=== PATIENT | female | born 1955 | race Caucasian/White ===

== ENCOUNTER 2023-10-29 00:29 | Emergency (ER) | payer OTHER, SELFPAY ==
[2023-10-29 00:30] VITALS: BP 135/94
--- NOTE | 2023-10-29 03:41 | ED.GENMED ---
History of Present Illness
<ZANA Santoyo - Last Filed: 10/29/23 04:31>
General
Chief Complaint: Abdominal Symptoms
Source: patient
Time Seen by Provider: 10/29/23 03:22
History of Present Illness
History of Present Illness:
Patient is a 68 y/o female with PMHx of diverticulosis and HLD presenting with nausea and vomiting. She states she was started on Augmentin yesterday by her PCP for suspected diverticulitis. She states that she took her first dose at 8:30pm last
night and began to become nauseous and had vomiting at 10:30pm. She states she vomited 6x and the last one she had a small amount of bright red blood. She states she look in the mirror and she had a rash under her eyes. She states she then drove
herself to the hospital and she began to feel like her throat was swelling. She denies any shortness of breath, difficulty breathing, chest pain, abdominal pain, diarrhea.
Past History
<ZANA Santoyo - Last Filed: 10/29/23 04:31>
Past History
ED Past Medical History: Hypercholesterolemia
ED Past Surgical History: Cholecystectomy, and Orthopedic (Right hip replacement)
Patient has exhibited threatening behavior?: No
Social History
Tobacco: Former smoker
Alcohol: Occasional
Drug: None
Living: with family
Family History
Family History: Other (Hypertension, coronary disease, A. fib)
Phy Exam
<ZANA Santoyo - Last Filed: 10/29/23 04:31>
Physical Exam
Physical Exam:
GENERAL: Alert , talking comfortably, in no apparent distress
EYE: pupils equal and reactive
Throat: Airway intact, no exudates. No edema. No bleeding noted.
NECK: Supple, no significant adenopathy.
CARDIAC: Regular rate and rhythm .
LUNGS: Clear breath sounds bilaterally, no acute respiratory distress, no wheezes/rales/rhonchi. No stridor.
ABDOMEN: Soft, nondistended, nontender, no cvat
NEUROLOGICAL: Alert and oriented, no focal neuro deficits
SKIN: Petechial rash under both eyes.
MUSCULOSKELETAL: No edema, well perfused.
PSYCH: Normal and appropriate interaction.
Course
<ZANA Santoyo - Last Filed: 10/29/23 04:31>
Vital Signs
Initial and Last Documented VS:
Initial Vital Signs
Temp Pulse Resp BP Pulse Ox
98.4 F 74 22 135/94 96
10/29/23 00:30 10/29/23 00:30 10/29/23 00:30 10/29/23 00:30 10/29/23 00:30
Last Documented Vital Signs
Temp Pulse Resp BP Pulse Ox
98.4 F 84 22 107/65 95
10/29/23 00:30 10/29/23 04:11 10/29/23 00:30 10/29/23 04:07 10/29/23 04:07
<Cayetano Esposito DO - Last Filed: 10/29/23 04:35>
Vital Signs
Initial and Last Documented VS:
Initial Vital Signs
Temp Pulse Resp BP Pulse Ox
98.4 F 74 22 135/94 96
10/29/23 00:30 10/29/23 00:30 10/29/23 00:30 10/29/23 00:30 10/29/23 00:30
Last Documented Vital Signs
Temp Pulse Resp BP Pulse Ox
98.4 F 84 22 107/65 95
10/29/23 00:30 10/29/23 04:11 10/29/23 00:30 10/29/23 04:07 10/29/23 04:07
<ZANA Santoyo - Last Filed: 10/29/23 04:31>
MDM/Problems Addressed
Differential Diagnosis Includes:
Differential diagnosis includes but is not limited to adverse drug reaction, allergic reaction
<ZANA Santoyo - Last Filed: 10/29/23 04:31>
*Pulse Oximetry
Patient hypoxic: no
*EKG
Interpreted by ED Provider?: NA
*Wire Mill Rover Interpretation
Rate: Wire Mill Rover- N/A
*Critical Care Note
Total Time (30-74mins, 75-104mins- exclusive of procedures): Not Applicable
ED Attending Note
<ZANA Santoyo - Last Filed: 10/29/23 04:31>
-
Portions of this chart may have been created with voice recognition software.� Occasional wrong word or��sound alike� substitutions may have occurred due to the inherent limitations of voice recognition software.
<Cayetano Esposito DO - Last Filed: 10/29/23 04:35>
ED Attending Note
Patient seen and examined by attending physician: Yes
I performed the substantive portion of visit, reviewed & personally made and approve the management plan that is documented in note by myself or ERINN.: Yes
ED Attending Note:
68-year-old female that had left lower quadrant abdominal pain that began last . 5 days later she called her primary care provider who recommended that she start on Augmentin. She took 1 dose of Augmentin tonight and had some nausea with
vomiting. She stated that she vomited 6 times with the last episode of vomiting having some bright red streaks of blood in it. Patient also reported some petechiae around her eyes. Patient states that during the course of her ER visit, her
symptoms had resolved. Patient was seen in conjunction with the PA student. I have reviewed and agree with the history and treatment plan presented. On my independent physical exam, patient is awake, alert, and oriented x3 no apparent distress.
Heart is regular rate rhythm. Lungs are clear to auscultation bilaterally no wheezes rales or rhonchi present. Abdomen soft with very minimal diffuse tenderness to palpation. Moves all 4 extremities. Skin is warm and dry.
Discussed discontinuation of Augmentin. Patient agreed. She does not wish to take another antibiotic. I did offer her Levaquin and Flagyl and she refused stating that she is very sensitive to antibiotics and does not wish to start a new
combination of antibiotics. We discussed CAT scan to rule out abdominal pathology. At this point she wishes to be discharged. I discussed return to ER instructions with her. She verbalized agreement and will return as needed.
Discharge Plan
Departure
Patient Disposition: Home (Routine Discharge)
Date of Disposition: 10/29/23
Time of Disposition: 04:34
Patient with high blood pressure during this ER visit?: Yes
Condition: Good
Discharge Problem:
Medication reaction, Nausea & vomiting
Instructions: Abdominal Pain, BLOOD PRESSURE, [place] Diet, Nausea and Vomiting, Adult (DC)
Prescriptions:
No Action
estradiol [Vivelle-Dot] 1 PATCH.BWK patch semiweekly
0.25 mg TOP MOTH
cetirizine 10 MG tablet
10 mg PO DAILY
progesterone micronized [Prometrium] 100 MG capsule
1 tab PO DAILY
coenzyme Q10 [CoQ-10] 100 MG capsule
200 mg PO DAILY
rosuvastatin 5 MG tablet
5 mg PO DAILY
omega-3 fatty acids-fish oil [Fish Oil] 1,000 MG capsule
1,000 mg PO DAILY
cholecalciferol (vitamin D3) [Vitamin D3] 2,000 UNIT capsule
2,000 unit PO DAILY
C,E,zinc,copper [id number] 1 CAP capsule
1 tab PO DAILY
Grape Seed Extract
1 tab PO DAILY
Ligaplex
2 tab PO DAILY
Referrals:
Ken Cintron DO [Family Provider] -
Activity Restrictions/Additional Instructions:
It was a pleasure meeting you and taking part in your care. We hope for your continued healing and wellness.
Please read discharge instructions in their entirety. However, they are for general education and may not describe your exact diagnosis at discharge. Information on your ER visit and medical conditions were discussed with you along with appropriate
follow up information...
If indicated, please take your medications as instructed and indicated on discharge paperwork.
Please schedule a follow up appointment as directed. Call to schedule an appointment
Please return to the emergency department with ANY change in, persisting, or worsening of symptoms. If any of your symptoms do not improve, or persist, or become more severe within 6-12 hours, please return to the emergency department for further
care.
Please return to the emergency department if you develop a headache, neck pain/stiffness, fever greater than 100.4F, chest pain, shortness of breath, persistent nausea, vomiting, slurred speech, difficulty walking, numbness/tingling, weakness, signs
of infection or any other symptoms that are worrisome to you.
If you have any questions or concerns please do not hesitate to call the Hospital at or E-mail me directly at [email or web address]
Interventions
Interventions:
*Risk Screen - Suicide Last Done: 10/29/23 00:30
*General Assessment Last Done: 10/29/23 04:12
*Neglect/Abuse Screening Last Done: 10/29/23 00:30
ED- Fall Risk Assessment Last Done: 10/29/23 04:12
*ED COVID-19 Vaccine History Last Done: 10/29/23 04:12
TD-Aqicwy-Xlelxzblkw Assessment Last Done: 10/29/23 04:14
ED-EENT Assessment Last Done: 10/29/23 04:12
ED- Pulmonary Assessment Last Done: 10/29/23 04:12
ED-Skin Assessment Last Done: 10/29/23 04:14
Discharge Date and Time
Print Language: BULGARIAN
[2023-10-29 04:07] VITALS: BP 107/65
== END 2023-10-29 04:59 | disposition home or self-care (01) ==
LOC: EMR 00:29
PROVIDERS: EMERGENCY PHYSICIAN Student in an Organized Health Care Education/Training Program; FAMILY PHYSICIAN Family Medicine
DX: R11.2 Nausea with vomiting, unspecified (principal); T50.905A Adverse effect of unspecified drugs, medicaments and biological substances, initial encounter; Y92.9 Unspecified place or not applicable; E78.00 Pure hypercholesterolemia, unspecified; Z87.891 Personal history of nicotine dependence; Z82.49 Family history of ischemic heart disease and other diseases of the circulatory system
CPT/HCPCS: 99282

== ENCOUNTER → 2024-02-05 06:23 | Day surgery (SDC) | payer OTHER, SELFPAY | LOC: GI 06:23 | PROVIDERS: ATTENDING PHYSICIAN Internal Medicine | DX: Z12.11 Encounter for screening for malignant neoplasm of colon (principal); D12.0 Benign neoplasm of cecum; K57.30 Diverticulosis of large intestine without perforation or abscess without bleeding; K64.8 Other hemorrhoids; Z86.0100 Personal history of colon polyps, unspecified | CPT/HCPCS: 45385; 88305 ==